=== PATIENT | male | born 1955 | race Caucasian/White ===

== ENCOUNTER → 2023-01-16 12:09 | Outpatient (CLI) | payer BC, SELFPAY ==
[2023-01-16 13:27] LABS: Alanine Aminotransferase 19 IU/L (<50); Albumin 4.1 g/dL (3.5-5.0); Albumin Globulin Ratio 1.3 (1.0-2.8); Alkaline Phosphatase 44 U/L (38-126); Aspartate Aminotransferase 27 IU/L (17-59); BUN Creatinine Ratio 20.8 (6-22); Bilirubin Total 0.4 mg/dL (0.2-1.3); Blood Urea Nitrogen 16 mg/dL (9-20); Carbon Dioxide 30 mmol/L (22-32); Chloride 103 mmol/L (98-107); Cholesterol 183 mg/dL (140-199); Estimated Glomerular Filt Rate > 60 mL/min (>60); Globulin 3.1 g/dL (1.7-4.1); Glucose 92 mg/dL (80-110); HDL Cholesterol 66 mg/dL (40-60); HEMOLYSIS < 15 (0-50); LDL Cholesterol Calculated 105 mg/dL (<100); Potassium 4.1 mmol/L (3.4-5.1); Sodium 140 mmol/L (137-145); Total Protein 7.2 g/dL (6.3-8.2); Triglycerides 60 mg/dL (35-150)
[2023-01-16 13:39] LABS: Hematocrit 39.8 % (41-53); Hemoglobin 13.4 g/dL (13.5-17.5); Mean Corpuscular HGB Conc 33.7 % (30-36); Mean Corpuscular Hemoglobin 30.6 PG (26-34); Mean Corpuscular Volume 90.8 fL (80-100); Platelet Count 108 X10^3/uL (150-400); Red Blood Cell Count 4.38 X10^6/uL (4.5-5.9); Red Cell Distribution Width 14.9 % (11.6-14.8); White Blood Cell Count 4.4 X10^3/uL (4.5-11.0)
[2023-01-16 13:57] LABS: Prostate Specific Antigen Scrn 1.61 ng/mL (0.1-4.0); TSH w/ Reflex to FT4 4.06 uIU/mL (0.47-4.68)
== END ==
PROVIDERS: PCP Internal Medicine; Referring Provider Internal Medicine; Visit Provider Internal Medicine
DX: E78.2 Mixed hyperlipidemia (principal); Z00.00 Encounter for general adult medical examination without abnormal findings; Z12.5 Encounter for screening for malignant neoplasm of prostate
CPT/HCPCS: 36415; 80053; 80061; 84443; 85027; G0103

== ENCOUNTER → 2024-02-04 11:46 | Outpatient (CLI) | payer MEDICARE, OTHER, SELFPAY ==
[2024-02-04 14:09] LABS: Aspartate Aminotransferase 30 IU/L (17-59); BUN Creatinine Ratio 19.7 (6-22); Blood Urea Nitrogen 14 mg/dL (9-20); Calcium 9.1 mg/dL (8.4-10.2); Carbon Dioxide 31 mmol/L (22-32); Chloride 106 mmol/L (98-107); Cholesterol 136 mg/dL (140-199); Estimated Glomerular Filt Rate > 60 mL/min (>60); Glucose 88 mg/dL (80-110); HDL Cholesterol 80 mg/dL (40-60); HEMOLYSIS < 15 (0-50); LDL Cholesterol Calculated 48 mg/dL (<100); Potassium 3.9 mmol/L (3.4-5.1); Sodium 139 mmol/L (137-145); Triglycerides 40 mg/dL (35-150)
== END ==
PROVIDERS: PCP Internal Medicine; Referring Provider Internal Medicine; Visit Provider Internal Medicine
DX: E78.2 Mixed hyperlipidemia (principal); N40.1 Benign prostatic hyperplasia with lower urinary tract symptoms; N13.8 Other obstructive and reflux uropathy; G25.81 Restless legs syndrome
CPT/HCPCS: 36415; 80048; 80061; 84153; 84450

== ENCOUNTER → 2024-06-06 13:06 | Outpatient (CLI) | payer MEDICARE, OTHER, SELFPAY ==
[2024-06-06 14:03] LABS: Influenza A - CEPHEID Flu A NEGATIVE (NEGATIVE); Influenza B - CEPHEID Flu B NEGATIVE (NEGATIVE); Respiratory Syncytial Virus Negative (Negative)
[2024-06-06 14:20] LABS: COVID-19 CEPHEID 4-PLEX PCR POSITIVE (Negative)
== END ==
PROVIDERS: PCP Internal Medicine; Visit Provider Physician Assistant Surgical
DX: R05.9 Cough, unspecified (principal)
CPT/HCPCS: 0241U

== ENCOUNTER 2024-06-29 16:48 | Emergency (ER) | payer MEDICARE, OTHER, SELFPAY ==
[2024-06-29 16:59] VITALS: BP 149/69; PULSE 51; RESP 16; TEMP 36.5; O2SAT 99; BMI 25.3
--- NOTE | 2024-06-29 17:53 | ED_ITS ---
HPI - Animal Bite <Penny Browning PA-C - Last Filed: 06/29/24 18:01> General Chief Complaint: Animal Bite Stated Complaint: bat exposure, needs rabies vaccine Time Seen by Provider: 06/29/24 17:18 Source: patient Mode of arrival: Ambulatory History of Present Illness HPI narrative: 69-year-old male presents to the ED following a exposure to a bat in the room 5 days ago. Patient has not had a rabies vaccine prior to this. Patient denies being bitten. Patient denies any symptoms and endorses feeling well. Related Data Previous Rx's Medication Instructions Recorded rosuvastatin 10 mg tablet 10 mg PO DAILY #90 tabs 01/20/24 Allergies Allergy/AdvReac Type Severity Reaction Status Date / Time injected PCN Allergy Mild per Uncoded 06/29/24 17:13 allergy testing Review of Systems <Penny Browning PA-C - Last Filed: 06/29/24 18:01> Constitutional Constitutional: Denies chills, Denies fatigue, Denies fever(s), Denies frequent falls, Denies lethargy and Denies weakness Eyes Eyes: Denies change in vision, Denies eye discharge, Denies irritation and Denies loss of vision ENT Ears, Nose, Mouth, and Throat: Denies change in voice, Denies dizziness, Denies neck pain, Denies sore throat and Denies throat swelling Cardiovascular Cardiovascular: Denies chest pain, Denies irregular heart rhythm, Denies lightheadedness, Denies palpitations, Denies dyspnea, Denies dyspnea on exertion and Denies orthopnea Respiratory Respiratory: Denies cough, Denies dyspnea, Denies dyspnea on exertion and Denies wheezing Gastrointestinal Gastrointestinal: Denies abdominal pain, Denies change in bowel habits, Denies diarrhea, Denies nausea and Denies vomiting Musculoskeletal Musculoskeletal: Denies neck pain and Denies numbness Integumentary/Breasts Skin/Breast: Denies pruritus, Denies erythema, Denies rash and Denies wounds Neurologic Neurologic: Denies behavioral changes, Denies confusion, Denies dizziness, Denies frequent falls, Denies loss of vision, Denies numbness and Denies weakness Psychiatric Psychiatric: Denies anxiety, Denies behavioral changes, Denies confusion, Denies depression, Denies homicidal ideation and Denies suicidal ideation Endocrine Endocrine: Denies fatigue, Denies flushing and Denies palpitations Hematologic/Lymphatic Hematologic/Lymphatic: Denies easy bruising Allergic/Immunologic Allergic/Immunologic: Denies urticaria, Denies throat swelling and Denies wheezing Patient History <Penny Browning PA-C - Last Filed: 06/29/24 18:01> Medical History Restless legs syndrome Hammertoe of left foot Primary osteoarthritis involving multiple joints Allergic rhinitis Mixed hyperlipidemia Myopia Eczema (~1989) Ocular migraine (~2012) Congenital vertebral anomaly Shoulder pain (~2004) Congenital scoliosis Fractures Mononucleosis (~1970) Rubella (~1965) Mumps Measles (~1965) Chicken pox (~1965) History of narrow angle glaucoma (~2020) Tinnitus (~2009) Hearing loss (~2020) Surgical History Anesthesia History of laser iridotomy History of hip surgery (~09/2012) History of mandibular surgery (~07/2007) Family History Father Melanoma Hypertension Hyperlipidemia Mental health problem Mother Congestive heart failure Hypertension Hyperlipidemia Sister Rheumatoid arthritis Raynaud's syndrome Grandfather Cancer Grandmother Cancer Grandfather Bone cancer Grandmother Mental health problem Dementia Social History details: , 1 daughter, 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 Smoking Status: Never smoker alcohol intake frequency: 0-2 drinks per day Alcohol type: beer Substance Use Type: does not use Exam <Penny Browning PA-C - Last Filed: 06/29/24 18:01> Narrative Exam Narrative: Const General:?cooperative, healthy appearing and comfortable [facility] Head:?normal to inspection Ears:?hearing grossly normal bilaterally Nose:?external nose normal Face and sinus:?normal facial exam and sinuses nontender Mouth:?oral mucosae normal Throat:?posterior oropharynx normal Eyes General:?appearance normal, both eyes and all related structures Neck Neck:?normal visual inspection and no lymphadenopathy noted Resp Effort & Inspection:?normal respiratory effort Auscultation:?clear to auscultation bilaterally Cardio Rate:?regular rate Rhythm:?regular rhythm Neuro General:?patient alert, patient awake and patient oriented x3; gait normal; CN 1 through 12 intact bilaterally; PERRLA; neurologically intact Initial Vital Signs Initial Vital Signs: Vital Signs Temperature 97.7 F 06/29/24 16:59 Pulse Rate 51 L 06/29/24 16:59 Respiratory Rate 16 06/29/24 16:59 Blood Pressure 149/69 H 06/29/24 16:59 Pulse Oximetry 99 06/29/24 16:59 Oxygen Delivery Method Room Air 06/29/24 16:59 <DO Vivian Samuels Last Filed: 06/29/24 18:04> Initial Vital Signs Initial Vital Signs: Vital Signs Temperature 97.7 F 06/29/24 16:59 Pulse Rate 51 L 06/29/24 16:59 Respiratory Rate 16 06/29/24 16:59 Blood Pressure 149/69 H 06/29/24 16:59 Pulse Oximetry 99 06/29/24 16:59 Oxygen Delivery Method Room Air 06/29/24 16:59 Course <Penny Browning PA-C - Last Filed: 06/29/24 18:01> Orders Ordered: Discontinued Medications Rabies Immune Globulin (Rabies Immune Globulin 300 Unit/Ml 1ml Vial) 1,470 unit 20 unit/kg (1470 unit) IM NOW ONE Stop: 06/29/24 17:26 Rabies Vaccine (Rabies Vaccine (Rabavert) 2.5 Units Syringe) 2.5 units IM .ONCE ONE Stop: 06/29/24 17:26 Vital Signs Vital signs: Vital Signs - 8 hr 06/29/24 16:59 Temperature 97.7 F Pulse Rate 51 L Respiratory Rate 16 Blood Pressure 149/69 H Pulse Oximetry 99 Oxygen Delivery Method Room Air <DO Vivian Samuels Last Filed: 06/29/24 18:04> Orders Ordered: Discontinued Medications Rabies Immune Globulin (Rabies Immune Globulin 300 Unit/Ml 1ml Vial) 1,470 unit 20 unit/kg (1470 unit) IM NOW ONE Stop: 06/29/24 17:26 Rabies Vaccine (Rabies Vaccine (Rabavert) 2.5 Units Syringe) 2.5 units IM .ONCE ONE Stop: 06/29/24 17:26 Vital Signs Vital signs: Vital Signs - 8 hr 06/29/24 16:59 Temperature 97.7 F Pulse Rate 51 L Respiratory Rate 16 Blood Pressure 149/69 H Pulse Oximetry 99 Oxygen Delivery Method Room Air MDM - Animal Bite <Penny Browning PA-C - Last Filed: 06/29/24 18:01> MDM Narrative Medical decision making narrative: 69-year-old male presents to the ED following a exposure to a bat in the room 5 days ago. Given patient's circumstance, being in the same room with the bat, it is recommended that he obtain the rabies immunoglobulin and the rabies vaccine series. However, it was discovered that we do not have anymore of the vaccines in the ED today. We will most likely be getting more of them tomorrow. Discussed this with the patient, recommended that he find a different ED that has the vaccine as soon as possible. Patient can call our ED if he is unable to find a vaccine by tomorrow morning to see if we have anymore. Signs and symptoms of rabies discussed with patient. ED return precautions discussed with patient. Patient verbalized understanding. Medical records reviewed: Yes Discharge Plan Departure Patient Disposition: Home Clinical Impression: Exposure to bat without known bite Instructions: DI for Rabies Vaccine Activity Restrictions/Additional Instructions: You were evaluated in the ED today for a bat exposure. Given your circumstance where you were in the same room as the bat, it is advisable to obtain the rabies vaccine as well as the rabies immunoglobulin. Unfortunately, we are out of this medication in the ED today and hope to have it tomorrow. However, we advise that you obtain the rabies vaccine as soon as possible prolonged another emergency department as soon as possible. In the event that you are unsuccessful to do so by tomorrow morning, please to give us a call back to check if we have the medications. Please continue to monitor your symptoms and return to the ED or call 911 if you note any rabies symptoms. We thank you for coming into the ED today and apologize that we are unable to administer the vaccine today. Prescriptions: No Action rosuvastatin 10 mg tablet 10 mg PO DAILY Qty: 90 3RF Referrals: Avelino Montemayor MD [Primary Care Provider] - Stand Alone Forms: Patient Portal/API ED Sign-out <Flaco Lehman DO - Last Filed: 06/29/24 18:04> Cosign ED Attending Coskettyature Attestation: Dr Lehman Co-Sign Statement: I was available for consultation during this patient's emergency department visit. This chart is signed by myself for administrative purposes only. I did not have direct contact with this patient during this visit. They were seen independently by the APC.
[2024-06-29 18:10] VITALS: BP 124/76; PULSE 65; RESP 14; O2SAT 99
--- NOTE | 2024-06-29 18:10 | PC.NURSE ---
We are unable to provide rabies immunoglobulin or vaccine today due to shortage in the facility. Pt made aware and informed to pursue calling local ER's to attempt to find vaccines available and informed to return to ER with any symptoms since he currently has none. Pt made aware if he could not find a facility with available vaccines, then we should be recieving dose tomorrow and his paperwork instructs him to call to check availability before returning. Pt expressed understanding and was extremely calm and polite given the circumstances.
== END 2024-06-29 18:10 | disposition home or self-care (01) ==
PROVIDERS: Emergency Provider Student in an Organized Health Care Education/Training Program; PCP Internal Medicine
DX: Z20.3 Contact with and (suspected) exposure to rabies (principal)

== ENCOUNTER 2024-06-30 14:58 | Emergency (ER) | payer MEDICARE, OTHER, SELFPAY ==
[2024-06-30 15:04] VITALS: BP 140/67; PULSE 58; RESP 16; TEMP 36.8; O2SAT 99; BMI 25.3
[2024-06-30] MEDS: RABIES VACCINE (RABAVERT) 2.5 UNITS SYRINGE IM (15:34)
[2024-06-30] MEDS: RABIES IMMUNE GLOBULIN 300 UNIT/ML 1mL VIAL 1470 UNIT IM (16:49)
--- NOTE | 2024-06-30 16:52 | ED.RECABL ---
HPI - Recheck/Abnormal Lab/Rx <Penny Browning PA-C - Last Filed: 06/30/24 16:55> General Chief Complaint: Recheck/Abnormal Lab/Rx Stated Complaint: Bat Exposure; Rabies Shot Time Seen by Provider: 06/30/24 15:44 Source: patient Mode of arrival: Family Vehicle History of Present Illness HPI narrative: 69-year-old male presents to the ED following an exposure to a bat in the room 6 days ago. Patient presented to the ED yesterday, however we did not have the rabies vaccine available. Patient was recommended to go to a different ED where he could get the rabies vaccine as soon as possible. Patient is here today since he has not been able to get the vaccines thus far. Patient denies experiencing any symptoms of a rabies infection. Patient feels well. No prior rabies vaccines prior to this. Related Data Previous Rx's Medication Instructions Recorded rosuvastatin 10 mg tablet 10 mg PO DAILY #90 tabs 01/20/24 Allergies Allergy/AdvReac Type Severity Reaction Status Date / Time injected PCN Allergy Mild per Uncoded 06/29/24 17:13 allergy testing Review of Systems <Penny Browning PA-C - Last Filed: 06/30/24 16:55> Review of Systems Narrative: No symptoms Constitutional Constitutional: Denies chills, Denies fatigue, Denies fever(s), Denies frequent falls, Denies lethargy and Denies weakness Eyes Eyes: Denies change in vision, Denies eye discharge, Denies irritation and Denies loss of vision ENT Ears, Nose, Mouth, and Throat: Denies change in voice, Denies dizziness, Denies neck pain, Denies sore throat and Denies throat swelling Cardiovascular Cardiovascular: Denies chest pain, Denies irregular heart rhythm, Denies lightheadedness, Denies palpitations, Denies dyspnea, Denies dyspnea on exertion and Denies orthopnea Respiratory Respiratory: Denies cough, Denies dyspnea, Denies dyspnea on exertion and Denies wheezing Gastrointestinal Gastrointestinal: Denies abdominal pain, Denies change in bowel habits, Denies diarrhea, Denies nausea and Denies vomiting Musculoskeletal Musculoskeletal: Denies neck pain and Denies numbness Integumentary/Breasts Skin/Breast: Denies pruritus, Denies erythema, Denies rash and Denies wounds Neurologic Neurologic: Denies behavioral changes, Denies confusion, Denies dizziness, Denies frequent falls, Denies loss of vision, Denies numbness and Denies weakness Psychiatric Psychiatric: Denies anxiety, Denies behavioral changes, Denies confusion, Denies depression, Denies homicidal ideation and Denies suicidal ideation Endocrine Endocrine: Denies fatigue, Denies flushing and Denies palpitations Hematologic/Lymphatic Hematologic/Lymphatic: Denies easy bruising Allergic/Immunologic Allergic/Immunologic: Denies urticaria, Denies throat swelling and Denies wheezing Patient History <Penny Browning PA-C - Last Filed: 06/30/24 16:55> Medical History Restless legs syndrome Hammertoe of left foot Primary osteoarthritis involving multiple joints Allergic rhinitis Mixed hyperlipidemia Myopia Eczema (~1989) Ocular migraine (~2012) Congenital vertebral anomaly Shoulder pain (~2004) Congenital scoliosis Fractures Mononucleosis (~1970) Rubella (~1965) Mumps Measles (~1965) Chicken pox (~1965) History of narrow angle glaucoma (~2020) Tinnitus (~2009) Hearing loss (~2020) Surgical History Anesthesia History of laser iridotomy History of hip surgery (~09/2012) History of mandibular surgery (~07/2007) Family History Father Melanoma Hypertension Hyperlipidemia Mental health problem Mother Congestive heart failure Hypertension Hyperlipidemia Sister Rheumatoid arthritis Raynaud's syndrome Grandfather Cancer Grandmother Cancer Grandfather Bone cancer Grandmother Mental health problem Dementia Social History details: , 1 daughter, 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 Smoking Status: Never smoker alcohol intake frequency: 0-2 drinks per day Alcohol type: beer Substance Use Type: does not use Exam <Penny Browning PA-C - Last Filed: 06/30/24 16:55> Narrative Exam Narrative: Const General:?cooperative, healthy appearing and comfortable [facility] Head:?normal to inspection Ears:?hearing grossly normal bilaterally Nose:?external nose normal Face and sinus:?normal facial exam and sinuses nontender Mouth:?oral mucosae normal Throat:?posterior oropharynx normal Eyes General:?appearance normal, both eyes and all related structures Neck Neck:?normal visual inspection and no lymphadenopathy noted Resp Effort & Inspection:?normal respiratory effort Auscultation:?clear to auscultation bilaterally Cardio Rate:?regular rate Rhythm:?regular rhythm Neuro General:?patient alert, patient awake and patient oriented x3; neurologically intact; PERRLA; CN 1 through 12 intact bilaterally; gait is normal Initial Vital Signs Initial Vital Signs: Vital Signs Temperature 98.2 F 06/30/24 15:04 Pulse Rate 58 L 06/30/24 15:04 Respiratory Rate 16 06/30/24 15:04 Blood Pressure 140/67 06/30/24 15:04 Pulse Oximetry 99 06/30/24 15:04 Oxygen Delivery Method Room Air 06/30/24 15:04 <Flaco Lehman DO - Last Filed: 06/30/24 17:10> Initial Vital Signs Initial Vital Signs: Vital Signs Temperature 98.2 F 06/30/24 15:04 Pulse Rate 58 L 06/30/24 15:04 Respiratory Rate 16 06/30/24 15:04 Blood Pressure 140/67 06/30/24 15:04 Pulse Oximetry 99 06/30/24 15:04 Oxygen Delivery Method Room Air 06/30/24 15:04 Course <Penny Browning PA-C - Last Filed: 06/30/24 16:55> Orders Ordered: Discontinued Medications Rabies Immune Globulin (Rabies Immune Globulin 300 Unit/Ml 1ml Vial) 1,470 unit 20 unit/kg (1470 unit) IM NOW ONE Stop: 06/30/24 15:21 Last Admin: 06/30/24 15:29 Dose: Not Given Documented By: FALGUNI Rabies Immune Globulin (Rabies Immune Globulin 300 Unit/Ml 1ml Vial) 1,470 unit 20 unit/kg (1470 unit) IM NOW ONE Stop: 06/30/24 16:09 Last Admin: 06/30/24 16:49 Dose: 1,470 unit Documented By: GUILLERMO Rabies Vaccine (Rabies Vaccine (Rabavert) 2.5 Units Syringe) 2.5 units IM .ONCE ONE Stop: 06/30/24 15:19 Last Admin: 06/30/24 15:34 Dose: 2.5 units Documented By: FALGUNI Vital Signs Vital signs: Vital Signs - 8 hr 06/30/24 15:04 Temperature 98.2 F Pulse Rate 58 L Respiratory Rate 16 Blood Pressure 140/67 Pulse Oximetry 99 Oxygen Delivery Method Room Air <Flaco Lehman DO - Last Filed: 06/30/24 17:10> Orders Ordered: Discontinued Medications Rabies Immune Globulin (Rabies Immune Globulin 300 Unit/Ml 1ml Vial) 1,470 unit 20 unit/kg (1470 unit) IM NOW ONE Stop: 06/30/24 15:21 Last Admin: 06/30/24 15:29 Dose: Not Given Documented By: FALGUNI Rabies Immune Globulin (Rabies Immune Globulin 300 Unit/Ml 1ml Vial) 1,470 unit 20 unit/kg (1470 unit) IM NOW ONE Stop: 06/30/24 16:09 Last Admin: 06/30/24 16:49 Dose: 1,470 unit Documented By: GUILLERMO Rabies Vaccine (Rabies Vaccine (Rabavert) 2.5 Units Syringe) 2.5 units IM .ONCE ONE Stop: 06/30/24 15:19 Last Admin: 06/30/24 15:34 Dose: 2.5 units Documented By: FALGUNI Vital Signs Vital signs: Vital Signs - 8 hr 06/30/24 15:04 Temperature 98.2 F Pulse Rate 58 L Respiratory Rate 16 Blood Pressure 140/67 Pulse Oximetry 99 Oxygen Delivery Method Room Air MDM - Recheck/Abnormal Lab/Rx <Penny Browning PA-C - Last Filed: 06/30/24 16:55> MDM Narrative Medical decision making narrative: 69-year-old male presents to the ED following an exposure to a bat in the room 6 days ago. Patient was given the 1st dose of the rabies immunoglobulin. Patient was also given the 1st dose of the rabies vaccine series. The remaining doses are scheduled to be given on July 03, July 07, July 14. ED return precautions discussed with patient. Patient verbalized understanding. Medical records reviewed: Yes Discharge Plan Departure Patient Disposition: Home Clinical Impression: Exposure to rabies Instructions: DI for Rabies Vaccine Activity Restrictions/Additional Instructions: You were seen in the ED for a possible rabies exposure. You were given a dose of the rabies immunoglobulin as well as the 1st dose of the rabies vaccine. You will need to return to the ED for the remaining 3 doses of the rabies vaccine which are scheduled for July 03, July 07, July 14. Return to the ED if you experience any signs of a rabies infection. Prescriptions: No Action rosuvastatin 10 mg tablet 10 mg PO DAILY Qty: 90 3RF Referrals: Avelion Montemayor MD [Primary Care Provider] - Stand Alone Forms: Patient Portal/API ED Sign-out <Flaco Lehman, - Last Filed: 06/30/24 17:10> Cosign ED Attending Cosignature Attestation: Dr Lehman Co-Sign Statement: I was available for consultation during this patient's emergency department visit. This chart is signed by myself for administrative purposes only. I did not have direct contact with this patient during this visit. They were seen independently by the APC.
[2024-06-30 17:16] VITALS: BP 137/67; PULSE 50; RESP 18; O2SAT 99
== END 2024-06-30 17:17 | disposition home or self-care (01) ==
PROVIDERS: Emergency Provider Student in an Organized Health Care Education/Training Program; PCP Internal Medicine
DX: Z20.3 Contact with and (suspected) exposure to rabies (principal); Z23 Encounter for immunization
CPT/HCPCS: 90375; 90471; 90675; 96372; 99283

== ENCOUNTER 2024-07-03 13:55 | Emergency (ER) | payer MEDICARE, OTHER, SELFPAY ==
[2024-07-03 14:01] VITALS: BP 133/75; PULSE 72; RESP 18; TEMP 37.2; O2SAT 98; BMI 25.3
--- NOTE | 2024-07-03 14:59 | ED_ITS ---
HPI - Recheck/Abnormal Lab/Rx <Virginia Ramos PA-C - Last Filed: 07/03/24 15:06> General Chief Complaint: Recheck/Abnormal Lab/Rx Stated Complaint: needs second rabies shot Time Seen by Provider: 07/03/24 14:47 Source: patient Mode of arrival: Ambulatory History of Present Illness HPI narrative: Patient is a pleasant 69-year-old male here for his 2nd rabies vaccine. One week ago this past Saturday the patient was sleeping, 1 of the cats bought a back into the home, unfortunately the about circulated through the home and ended up in a bedroom that the patient was in. Patient did not come in contact with the bat, there was no bite or scratch. However after talking with his primary care doctor was suggested that he come into the emergency department be treated. Patient was 1st seen here in the emergency department on Saturday of this week. He had hemoglobin on his 1st vaccine. He is now here on the for his 2nd shot. He has no physical complaints. Related Data Previous Rx's Medication Instructions Recorded rosuvastatin 10 mg tablet 10 mg PO DAILY #90 tabs 01/20/24 Allergies Allergy/AdvReac Type Severity Reaction Status Date / Time injected PCN Allergy Mild per Uncoded 06/29/24 17:13 allergy testing Review of Systems <Virginia Ramos PA-C - Last Filed: 07/03/24 15:06> Review of Systems Narrative: Negative except as above Patient History <Virginia Ramos PA-C - Last Filed: 07/03/24 15:06> Medical History Restless legs syndrome Hammertoe of left foot Primary osteoarthritis involving multiple joints Allergic rhinitis Mixed hyperlipidemia Myopia Eczema (~1989) Ocular migraine (~2012) Congenital vertebral anomaly Shoulder pain (~2004) Congenital scoliosis Fractures Mononucleosis (~1970) Rubella (~1965) Mumps Measles (~1965) Chicken pox (~1965) History of narrow angle glaucoma (~2020) Tinnitus (~2009) Hearing loss (~2020) Surgical History Anesthesia History of laser iridotomy History of hip surgery (~09/2012) History of mandibular surgery (~07/2007) Family History Father Melanoma Hypertension Hyperlipidemia Mental health problem Mother Congestive heart failure Hypertension Hyperlipidemia Sister Rheumatoid arthritis Raynaud's syndrome Grandfather Cancer Grandmother Cancer Grandfather Bone cancer Grandmother Mental health problem Dementia Social History details: , 1 daughter, 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 Smoking Status: Never smoker alcohol intake frequency: 0-2 drinks per day Alcohol type: beer Substance Use Type: does not use Exam <Virginia Ramos PA-C - Last Filed: 07/03/24 15:06> Initial Vital Signs Initial Vital Signs: Vital Signs Temperature 99 F 07/03/24 14:01 Pulse Rate 72 07/03/24 14:01 Respiratory Rate 18 07/03/24 14:01 Blood Pressure 133/75 07/03/24 14:01 Pulse Oximetry 98 07/03/24 14:01 Oxygen Delivery Method Room Air 07/03/24 14:01 Reviewed Const Other: Patient has no physical complaints he is here for his 2nd rabies shot exam shows healthy male sitting in the chair in no acute distress. <Safia Marti DO - Last Filed: 07/04/24 08:17> Initial Vital Signs Initial Vital Signs: Vital Signs Temperature 99 F 07/03/24 14:01 Pulse Rate 72 07/03/24 14:01 Respiratory Rate 18 07/03/24 14:01 Blood Pressure 133/75 07/03/24 14:01 Pulse Oximetry 98 07/03/24 14:01 Oxygen Delivery Method Room Air 07/03/24 14:01 Course <Virginia Ramos PA-C - Last Filed: 07/03/24 15:06> Orders Ordered: Discontinued Medications Rabies Vaccine (Rabies Vaccine (Rabavert) 2.5 Units Syringe) 2.5 units IM .ONCE ONE Stop: 07/03/24 15:00 Last Admin: 07/03/24 15:14 Dose: 2.5 units Documented By: TANK Vital Signs Vital signs: Vital Signs - 8 hr 07/03/24 14:01 Temperature 99 F Pulse Rate 72 Respiratory Rate 18 Blood Pressure 133/75 Pulse Oximetry 98 Oxygen Delivery Method Room Air <Safia Marti DO - Last Filed: 07/04/24 08:17> Orders Ordered: Discontinued Medications Rabies Vaccine (Rabies Vaccine (Rabavert) 2.5 Units Syringe) 2.5 units IM .ONCE ONE Stop: 07/03/24 15:00 Last Admin: 07/03/24 15:14 Dose: 2.5 units Documented By: TANK Vital Signs Vital signs: Vital Signs - 8 hr 07/03/24 14:01 Temperature 99 F Pulse Rate 72 Respiratory Rate 18 Blood Pressure 133/75 Pulse Oximetry 98 Oxygen Delivery Method Room Air MDM - Recheck/Abnormal Lab/Rx <Virginia Ramos PA-C - Last Filed: 07/03/24 15:06> [facility] Narrative Medical decision making narrative: Pleasant 69-year-old male here for his 2nd rabies vaccine. No physical complaints. Exam is negative for any acute findings. Patient will receive his 2nd rabies shot and be discharged. Differential diagnosis rabies prophylaxis. Patient has 2 more shots to complete in the for shot series. Discharge Plan Departure Patient Disposition: Home Clinical Impression: Need for prophylactic vaccination and inoculation against rabies Activity Restrictions/Additional Instructions: Return for your following 2 shots. Prescriptions: No Action rosuvastatin 10 mg tablet 10 mg PO DAILY Qty: 90 3RF Referrals: Avelino Montemayor MD [Primary Care Provider] - Stand Alone Forms: Patient Portal/API ED Sign-out <Safia Marti DO - Last Filed: 07/04/24 08:17> Cosign ED Attending Coskettyature Attestation: I was available for consultation.
[2024-07-03] MEDS: RABIES VACCINE (RABAVERT) 2.5 UNITS SYRINGE IM (15:14)
[2024-07-03 15:24] VITALS: BP 105/59; PULSE 54; RESP 16; O2SAT 98
== END 2024-07-03 15:25 | disposition home or self-care (01) ==
PROVIDERS: Emergency Provider Physician Assistant; PCP Internal Medicine
DX: Z20.3 Contact with and (suspected) exposure to rabies (principal); Z23 Encounter for immunization
CPT/HCPCS: 90471; 90675; 99283

== ENCOUNTER 2024-07-07 12:15 | Emergency (ER) | payer MEDICARE, OTHER, SELFPAY ==
[2024-07-07 12:26] VITALS: BP 121/69; PULSE 52; RESP 18; TEMP 36.9; O2SAT 97; BMI 25.3
[2024-07-07] MEDS: RABIES VACCINE (RABAVERT) 2.5 UNITS SYRINGE IM (13:36)
--- NOTE | 2024-07-07 15:03 | ED_ITS ---
HPI - Recheck/Abnormal Lab/Rx <Penny Browning PA-C - Last Filed: 07/07/24 15:25> General Chief Complaint: Recheck/Abnormal Lab/Rx Stated Complaint: 3rd rabies shot Time Seen by Provider: 07/07/24 13:13 Source: patient Mode of arrival: Ambulatory History of Present Illness HPI narrative: 69-year-old male presents to the ED for the 3rd dose of the rabies vaccine due to exposure to a bat in the room. Patient endorses that he is feeling well, denies any symptoms. Related Data Previous Rx's Medication Instructions Recorded rosuvastatin 10 mg tablet 10 mg PO DAILY #90 tabs 01/20/24 Allergies Allergy/AdvReac Type Severity Reaction Status Date / Time injected PCN Allergy Mild per Uncoded 06/29/24 17:13 allergy testing Review of Systems <Penny Browning PA-C - Last Filed: 07/07/24 15:25> Constitutional Constitutional: Denies chills, Denies fatigue, Denies fever(s), Denies frequent falls, Denies lethargy and Denies weakness Eyes Eyes: Denies change in vision, Denies eye discharge, Denies irritation and Denies loss of vision ENT Ears, Nose, Mouth, and Throat: Denies change in voice, Denies dizziness, Denies neck pain, Denies sore throat and Denies throat swelling Cardiovascular Cardiovascular: Denies chest pain, Denies irregular heart rhythm, Denies lightheadedness, Denies palpitations, Denies dyspnea, Denies dyspnea on exertion and Denies orthopnea Respiratory Respiratory: Denies cough, Denies dyspnea, Denies dyspnea on exertion and Denies wheezing Gastrointestinal Gastrointestinal: Denies abdominal pain, Denies change in bowel habits, Denies diarrhea, Denies nausea and Denies vomiting Musculoskeletal Musculoskeletal: Denies neck pain and Denies numbness Integumentary/Breasts Skin/Breast: Denies pruritus, Denies erythema, Denies rash and Denies wounds Neurologic Neurologic: Denies behavioral changes, Denies confusion, Denies dizziness, Denies frequent falls, Denies loss of vision, Denies numbness and Denies weakness Psychiatric Psychiatric: Denies anxiety, Denies behavioral changes, Denies confusion, Denies depression, Denies homicidal ideation and Denies suicidal ideation Endocrine Endocrine: Denies fatigue, Denies flushing and Denies palpitations Hematologic/Lymphatic Hematologic/Lymphatic: Denies easy bruising Allergic/Immunologic Allergic/Immunologic: Denies urticaria, Denies throat swelling and Denies wheezing Patient History <Penny Browning PA-C - Last Filed: 07/07/24 15:25> Medical History Restless legs syndrome Hammertoe of left foot Primary osteoarthritis involving multiple joints Allergic rhinitis Mixed hyperlipidemia Myopia Eczema (~1989) Ocular migraine (~2012) Congenital vertebral anomaly Shoulder pain (~2004) Congenital scoliosis Fractures Mononucleosis (~1970) Rubella (~1965) Mumps Measles (~1965) Chicken pox (~1965) History of narrow angle glaucoma (~2020) Tinnitus (~2009) Hearing loss (~2020) Surgical History Anesthesia History of laser iridotomy History of hip surgery (~09/2012) History of mandibular surgery (~07/2007) Family History Father Melanoma Hypertension Hyperlipidemia Mental health problem Mother Congestive heart failure Hypertension Hyperlipidemia Sister Rheumatoid arthritis Raynaud's syndrome Grandfather Cancer Grandmother Cancer Grandfather Bone cancer Grandmother Mental health problem Dementia Social History details: , 1 daughter, 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 Smoking Status: Never smoker alcohol intake frequency: 0-2 drinks per day Alcohol type: beer Substance Use Type: does not use Exam <Penny Browning PA-C - Last Filed: 07/07/24 15:25> Narrative Exam Narrative: Const General:?cooperative, healthy appearing and comfortable [facility] Head:?normal to inspection Ears:?hearing grossly normal bilaterally Nose:?external nose normal Face and sinus:?normal facial exam and sinuses nontender Mouth:?oral mucosae normal Throat:?posterior oropharynx normal Eyes General:?appearance normal, both eyes and all related structures Neck Neck:?normal visual inspection and no lymphadenopathy noted Resp Effort & Inspection:?normal respiratory effort Auscultation:?clear to auscultation bilaterally Cardio Rate:?regular rate Rhythm:?regular rhythm Neuro General:?patient alert, patient awake and patient oriented x3 Initial Vital Signs Initial Vital Signs: Vital Signs Temperature 98.4 F 07/07/24 12:26 Pulse Rate 52 L 07/07/24 12:26 Respiratory Rate 18 07/07/24 12:26 Blood Pressure 121/69 07/07/24 12:26 Pulse Oximetry 97 07/07/24 12:26 Oxygen Delivery Method Room Air 07/07/24 12:26 <Rosey Chapman DO - Last Filed: 07/08/24 07:45> Initial Vital Signs Initial Vital Signs: Vital Signs Temperature 98.4 F 07/07/24 12:26 Pulse Rate 52 L 07/07/24 12:26 Respiratory Rate 18 07/07/24 12:26 Blood Pressure 121/69 07/07/24 12:26 Pulse Oximetry 97 07/07/24 12:26 Oxygen Delivery Method Room Air 07/07/24 12:26 Course <Penny Browning PA-C - Last Filed: 07/07/24 15:25> Orders Ordered: Discontinued Medications Rabies Vaccine (Rabies Vaccine (Rabavert) 2.5 Units Syringe) 2.5 units IM .ONCE ONE Stop: 07/07/24 13:31 Last Admin: 07/07/24 13:36 Dose: 2.5 units Documented By: BS Vital Signs Vital signs: Vital Signs - 8 hr 07/07/24 12:26 Temperature 98.4 F Pulse Rate 52 L Respiratory Rate 18 Blood Pressure 121/69 Pulse Oximetry 97 Oxygen Delivery Method Room Air <Rosey Chapman DO - Last Filed: 07/08/24 07:45> Orders Ordered: Discontinued Medications Rabies Vaccine (Rabies Vaccine (Rabavert) 2.5 Units Syringe) 2.5 units IM .ONCE ONE Stop: 07/07/24 13:31 Last Admin: 07/07/24 13:36 Dose: 2.5 units Documented By: BS Vital Signs Vital signs: Vital Signs - 8 hr 07/07/24 12:26 Temperature 98.4 F Pulse Rate 52 L Respiratory Rate 18 Blood Pressure 121/69 Pulse Oximetry 97 Oxygen Delivery Method Room Air MDM - Recheck/Abnormal Lab/Rx <Penny Browning PA-C - Last Filed: 07/07/24 15:25> MDM Narrative Medical decision making narrative: 69-year-old male presents to the ED for the 3rd dose of the rabies vaccine due to exposure to a bat in the room. Patient is not experiencing any symptoms. Third dose of the rabies vaccine was administered in the ED today. Patient agrees to return to the ED on July 14 for his last dose of the rabies vaccine. ED return precautions were discussed with patient. Patient verbalized understanding. Medical records reviewed: Yes Discharge Plan Departure Patient Disposition: Home Clinical Impression: Rabies, need for prophylactic vaccination against Instructions: DI for Rabies Vaccine Activity Restrictions/Additional Instructions: The 3rd dose of the rabies vaccine was administered today. Please return to the ED on July 14 for your last dose. Please continue to monitor your symptoms and return to the ED if you have any worsening symptoms. Prescriptions: No Action rosuvastatin 10 mg tablet 10 mg PO DAILY Qty: 90 3RF Referrals: Avelino Montemayor MD [Primary Care Provider] - Stand Alone Forms: Patient Portal/API ED Sign-out <Rosey Chapman DO - Last Filed: 07/08/24 07:45> Cosign ED Attending Loanature Attestation: I was immediately available in the department for consultation.
== END 2024-07-07 13:55 | disposition home or self-care (01) ==
PROVIDERS: Emergency Provider Student in an Organized Health Care Education/Training Program; PCP Internal Medicine
DX: Z20.3 Contact with and (suspected) exposure to rabies (principal); Z23 Encounter for immunization
CPT/HCPCS: 90471; 90675; 99283

== ENCOUNTER 2024-07-14 14:06 | Emergency (ER) | payer MEDICARE, OTHER, SELFPAY ==
[2024-07-14 14:09] VITALS: BP 135/69; PULSE 59; RESP 17; TEMP 37.2; O2SAT 98; BMI 25.3
[2024-07-14] MEDS: RABIES VACCINE (RABAVERT) 2.5 UNITS SYRINGE IM (14:26)
--- NOTE | 2024-07-14 16:17 | ED.RECABL ---
HPI - Recheck/Abnormal Lab/Rx <Penny Browning PA-C - Last Filed: 07/14/24 16:21> General Chief Complaint: Recheck/Abnormal Lab/Rx Stated Complaint: 4th Rabies Shot Time Seen by Provider: 07/14/24 14:14 Source: patient Mode of arrival: Ambulatory History of Present Illness HPI narrative: 69-year-old male returns to the ED for the 4th and final dose of the rabies vaccine. Patient has been getting the rabies vaccine series as a prophylactic measure due to exposure to a bat in the room. Patient endorses feeling well, denies any symptoms or adverse effects. Related Data Previous Rx's Medication Instructions Recorded rosuvastatin 10 mg tablet 10 mg PO DAILY #90 tabs 01/20/24 Allergies Allergy/AdvReac Type Severity Reaction Status Date / Time Penicillins Allergy Mild INJECTABLE Verified 07/14/24 14:16 - per allergy testing Review of Systems <Penny Browning PA-C - Last Filed: 07/14/24 16:21> Constitutional Constitutional: Denies chills, Denies fatigue, Denies fever(s), Denies frequent falls, Denies lethargy and Denies weakness Eyes Eyes: Denies change in vision, Denies eye discharge, Denies irritation and Denies loss of vision ENT Ears, Nose, Mouth, and Throat: Denies change in voice, Denies dizziness, Denies neck pain, Denies sore throat and Denies throat swelling Cardiovascular Cardiovascular: Denies chest pain, Denies irregular heart rhythm, Denies lightheadedness, Denies palpitations, Denies dyspnea, Denies dyspnea on exertion and Denies orthopnea Respiratory Respiratory: Denies cough, Denies dyspnea, Denies dyspnea on exertion and Denies wheezing Gastrointestinal Gastrointestinal: Denies abdominal pain, Denies change in bowel habits, Denies diarrhea, Denies nausea and Denies vomiting Musculoskeletal Musculoskeletal: Denies neck pain and Denies numbness Integumentary/Breasts Skin/Breast: Denies pruritus, Denies erythema, Denies rash and Denies wounds Neurologic Neurologic: Denies behavioral changes, Denies confusion, Denies dizziness, Denies frequent falls, Denies loss of vision, Denies numbness and Denies weakness Psychiatric Psychiatric: Denies anxiety, Denies behavioral changes, Denies confusion, Denies depression, Denies homicidal ideation and Denies suicidal ideation Endocrine Endocrine: Denies fatigue, Denies flushing and Denies palpitations Hematologic/Lymphatic Hematologic/Lymphatic: Denies easy bruising Allergic/Immunologic Allergic/Immunologic: Denies urticaria, Denies throat swelling and Denies wheezing Patient History <Penny Browning PA-C - Last Filed: 07/14/24 16:21> Medical History Restless legs syndrome Hammertoe of left foot Primary osteoarthritis involving multiple joints Allergic rhinitis Mixed hyperlipidemia Myopia Eczema (~1989) Ocular migraine (~2012) Congenital vertebral anomaly Shoulder pain (~2004) Congenital scoliosis Fractures Mononucleosis (~1970) Rubella (~1965) Mumps Measles (~1965) Chicken pox (~1965) History of narrow angle glaucoma (~2020) Tinnitus (~2009) Hearing loss (~2020) Surgical History Anesthesia History of laser iridotomy History of hip surgery (~09/2012) History of mandibular surgery (~07/2007) Family History Father Melanoma Hypertension Hyperlipidemia Mental health problem Mother Congestive heart failure Hypertension Hyperlipidemia Sister Rheumatoid arthritis Raynaud's syndrome Grandfather Cancer Grandmother Cancer Grandfather Bone cancer Grandmother Mental health problem Dementia Social History details: , 1 daughter, 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normal visual inspection and no lymphadenopathy noted Resp Effort & Inspection:?normal respiratory effort Auscultation:?clear to auscultation bilaterally Cardio Rate:?regular rate Rhythm:?regular rhythm Neuro General:?patient alert, patient awake and patient oriented x3 Initial Vital Signs Initial Vital Signs: Vital Signs Temperature 98.9 F 07/14/24 14:09 Pulse Rate 59 L 07/14/24 14:09 Respiratory Rate 17 07/14/24 14:09 Blood Pressure 135/69 07/14/24 14:09 Pulse Oximetry 98 07/14/24 14:09 Oxygen Delivery Method Room Air 07/14/24 14:09 <[address] MD - Last Filed: 07/14/24 18:05> Initial Vital Signs Initial Vital Signs: Vital Signs Temperature 98.9 F 07/14/24 14:09 Pulse Rate 59 L 07/14/24 14:09 Respiratory Rate 17 07/14/24 14:09 Blood Pressure 135/69 07/14/24 14:09 Pulse Oximetry 98 07/14/24 14:09 Oxygen Delivery Method Room Air 07/14/24 14:09 Course <Penny Browning PA-C - Last Filed: 07/14/24 16:21> Orders Ordered: Discontinued Medications Rabies Vaccine (Rabies Vaccine (Rabavert) 2.5 Units Syringe) 2.5 units IM .ONCE ONE Stop: 07/14/24 14:16 Last Admin: 07/14/24 14:26 Dose: 2.5 units Documented By: GUILLERMO Vital Signs Vital signs: Vital Signs - 8 hr 07/14/24 14:09 Temperature 98.9 F Pulse Rate 59 L Respiratory Rate 17 Blood Pressure 135/69 Pulse Oximetry 98 Oxygen Delivery Method Room Air <Adriana St MD - Last Filed: 07/14/24 18:05> Orders Ordered: Discontinued Medications Rabies Vaccine (Rabies Vaccine (Rabavert) 2.5 Units Syringe) 2.5 units IM .ONCE ONE Stop: 07/14/24 14:16 Last Admin: 07/14/24 14:26 Dose: 2.5 units Documented By: GUILLERMO Vital Signs Vital signs: Vital Signs - 8 hr 07/14/24 14:09 Temperature 98.9 F Pulse Rate 59 L Respiratory Rate 17 Blood Pressure 135/69 Pulse Oximetry 98 Oxygen Delivery Method Room Air MDM - Recheck/Abnormal Lab/Rx <Penny Browning PA-C - Last Filed: 07/14/24 16:21> MDM Narrative Medical decision making narrative: 69-year-old male returns to the ED for the 4th and final dose of the rabies vaccine. Administered the 4th and last dose of the rabies vaccine today. Patient agrees to continue monitoring symptoms and will return to the ED if any symptoms or adverse effects are noted. Medical records reviewed: Yes Discharge Plan Departure Patient Disposition: Home Clinical Impression: Need for prophylactic vaccination and inoculation against rabies Instructions: DI for Rabies Vaccine Activity Restrictions/Additional Instructions: You were administered the last shot of the rabies vaccine today. This completes the series and it is reassuring that you have had no adverse effects. Please return to the ED if you note any worsening symptoms or adverse effects. Prescriptions: No Action rosuvastatin 10 mg tablet 10 mg PO DAILY Qty: 90 3RF Referrals: Avelino Montemayor MD [Primary Care Provider] - Stand Alone Forms: Patient Portal/API ED Sign-out <Adriana St MD - Last Filed: 07/14/24 18:05> Cosign ED Attending Coskettyature Attestation: I was immediately available in the department for consultation throughout this patient's visit. Adriana St MD
== END 2024-07-14 14:40 | disposition home or self-care (01) ==
PROVIDERS: Emergency Provider Student in an Organized Health Care Education/Training Program; PCP Internal Medicine
DX: Z20.3 Contact with and (suspected) exposure to rabies (principal); Z23 Encounter for immunization
CPT/HCPCS: 90471; 90675; 99283

== ENCOUNTER → 2024-08-07 | Outpatient (CLI) | payer MEDICARE, OTHER, SELFPAY | PROVIDERS: PCP Internal Medicine; Referring Provider Internal Medicine; Visit Provider Internal Medicine | DX: Z23 Encounter for immunization (principal) | CPT/HCPCS: 90471; 90662 ==

== ENCOUNTER → 2025-02-10 08:30 | Outpatient (CLI) | payer MEDICARE, OTHER, SELFPAY ==
[2025-02-10 10:05] LABS: Aspartate Aminotransferase 33 IU/L (17-59); BUN Creatinine Ratio 21.5 (6-22); Blood Urea Nitrogen 17 mg/dL (9-20); Calcium 8.9 mg/dL (8.4-10.2); Carbon Dioxide 27 mmol/L (22-32); Chloride 105 mmol/L (98-107); Cholesterol 150 mg/dL (140-199); Estimated Glomerular Filt Rate > 60 mL/min (>60); Glucose 93 mg/dL (70-99); HDL Cholesterol 79 mg/dL (40-60); HEMOLYSIS < 15 (0-50); LDL Cholesterol Calculated 61 mg/dL (<100); Potassium 4.4 mmol/L (3.4-5.1); Sodium 137 mmol/L (137-145); Triglycerides 48 mg/dL (35-150)
[2025-02-10 10:35] LABS: Prostate Specific Antigen 1.84 ng/mL (0.10-4.00)
== END ==
PROVIDERS: PCP Internal Medicine; Referring Provider Internal Medicine; Visit Provider Internal Medicine
DX: E78.2 Mixed hyperlipidemia (principal); N40.1 Benign prostatic hyperplasia with lower urinary tract symptoms; N13.8 Other obstructive and reflux uropathy
CPT/HCPCS: 36415; 80048; 80061; 84153; 84450